=== PATIENT | male | born 1965 | race Caucasian/White ===

== ENCOUNTER 2024-03-21 14:04 | Emergency (ER) | payer OTHER ==
[2024-03-21] MEDS ORDERED: MEFOXIN 2 GM PREMIX** 2 GM/50 ML ML IV ONE (14:05)
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
[2024-03-21] MEDS ORDERED: KEFZOL 1 GM/50 ML PREMIX** 50 ML IV ONE (14:24)
[2024-03-21 14:31] VITALS: TEMP 98.5
[2024-03-21 14:37] LABS: Absolute Neutrophil Ct (ANC) 3.69 x10^3/uL (1.78-5.38); BASOPHIL % 0.6 % (0.2-1.2); Basophil (Absolute #) 0.03 x10^3/uL (0.01-0.08); Eosinophil % 1.3 % (0.8-7.0); Eosinophil (Absolute #) 0.07 x10^3/uL (0.04-0.54); Hematocrit 42.6 % (40.1-51.0); Hemoglobin 15.1 g/dL (13.7-17.5); IMMATURE GRAN # 0.01 x10^3u/L (0.001-0.031); IMMATURE GRAN % 0.2 % (0.001-0.429); Lymphocyte (Absolute #) 1.04 x10^3/uL (1.32-3.57); Lymphocytes % 19.3 % (21.8-53.1); Mean Cell Volume 87.1 fL (79.0-92.2); Mean Corpuscular Hemoglobin 30.9 pg (25.7-32.2); Mean Corpuscular Hgb Concent. 35.4 g/dL (32.3-36.5); Mean Platelet Volume 8.7 fL (9.4-12.4); Monocyte (Absolute #) 0.56 x10^3/uL (0.30-0.82); Monocytes % 10.4 % (5.3-12.2); Neutrophil % 68.2 % (34.0-67.9); Platelet Count 297 x10^3/uL (163-337); Red Blood Count 4.89 x10^6/uL (4.63-6.08); Red Cell Distribution Width 12.5 % (11.6-14.4); White Blood Count 5.4 x10^3/uL (4.23-9.07)
[2024-03-21] MEDS ORDERED: Zofran 4 MG/2 ML VIAL ONE ×2 (14:37→16:46)
[2024-03-21] MEDS ORDERED: Hydromorphone 1 mg/ml Injection ONE (14:37)
[2024-03-21] MEDS ORDERED: Sodium Chloride 0.9% 1000 ML 1,000 ML ONE (14:37)
[2024-03-21] MEDS ORDERED: Adacel Vial IM ONE (14:38)
[2024-03-21] MEDS: Sodium Chloride 0.9% 1000 ML 1,000 ML IV SCH (14:39)
[2024-03-21] MEDS: Zofran 4 MG/2 ML VIAL IV ONE (14:39)
[2024-03-21] MEDS: Hydromorphone 1 mg/ml Injection IV ONE (14:39)
[2024-03-21] MEDS: Adacel Vial IM ONE (14:40)
[2024-03-21] MEDS ORDERED: KEFZOL 1 GM/50 ML PREMIX** 1 GM/50 ML IVPB IV ONE (14:52)
[2024-03-21] MEDS: KEFZOL 1 GM/50 ML PREMIX** 1 GM/50 ML IVPB IV STA (14:54)
[2024-03-21 14:56] LABS: ALBUMIN 4.5 g/dL (3.5-5.0); ANION GAP 14.7 MEQ/L (5-15); BILIRUBIN,TOTAL 0.9 mg/dL (0.2-1.3); Calcium 9.3 mg/dL (8.4-10.2); Creatinine 1 0.86 mg/dL (0.66-1.25); Potassium 3.6 mmol/L (3.5-5.1); Total Protein 7.8 g/dL (6.3-8.2)
[2024-03-21 15:07] LABS: INR 0.98 (0.8-3.0); PROTIME 10.7 SECONDS (9.4-12.5)
[2024-03-21] MEDS ORDERED: KEFLEX 500 MG ONE (15:11)
[2024-03-21] MEDS: KEFLEX 500 MG PO ONE (15:12)
[2024-03-21] MEDS ORDERED: Pepcid 20 MG VIAL IV ONE (15:28)
[2024-03-21] MEDS ORDERED: Reglan 10 MG/2 ML ONE (15:28)
[2024-03-21] MEDS: Reglan 10 MG/2 ML IV ONE (15:28)
[2024-03-21] MEDS: Pepcid 20 MG VIAL IV ONE (15:29)
[2024-03-21] MEDS ORDERED: Eye-Stream Solution ONE (15:35)
[2024-03-21] MEDS: Eye-Stream Solution OP ONE (15:52)
[2024-03-21 16:37] VITALS: PULSE 81; RESP 14; O2SAT 99
[2024-03-21] MEDS ORDERED: Sensorcaine 0.25% 10 ML ONE (16:38)
[2024-03-21] MEDS ORDERED: DIPRIVAN 200 MG/20 ML IV ONE (16:44)
[2024-03-21] MEDS ORDERED: ROCURONIUM BROMIDE IV ONE (16:46)
[2024-03-21] MEDS ORDERED: Versed 2 MG/2 ML Injection ONE (16:47)
[2024-03-21] MEDS ORDERED: SUBLIMAZE 100 MCG/2 ML ONE (16:48)
[2024-03-21] MEDS ORDERED: BRIDION 200MG/2ML IV ONE (16:51)
[2024-03-21] MEDS ORDERED: Quelicin Fliptop 200 MG/10 ML ONE (16:56)
[2024-03-21 17:08] VITALS: BP 145/72
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
--- NOTE | 2024-03-22 10:37 | OP ---
SURGERY DATE/TIME: 03/21/2024 1713 - 1810 PREOPERATIVE DIAGNOSIS: Two major lacerations. POSTOPERATIVE DIAGNOSIS: Two major lacerations. PROCEDURES: 1) Debridement, irrigation and repair of 9 cm laceration left hip involving significant muscle. 2) Debridement, irrigation and repair of 4 cm right upper thigh incision with closure. SURGEON: Sidney Hurd MD ANESTHESIA: General. BLOOD LOSS: None. DRAINS: None. COMPLICATIONS: None. CONDITION: Stable. DESCRIPTION OF PROCEDURE AND FINDINGS: The patient was taken to surgery in the prone position, prepped and draped. There was a laceration that was not through the skin. This was prepped into the field and it was irrigated with a tile power shear operator but was of no significance. Attention was turned to a small 4 cm on the right upper thigh. It was debrided lightly. There was some thrombus here and there. It was taken off. It was seriously irrigated. It was closed with vertical mattress sutures of 3-0 Prolene. Turning to the left lateral hip 9 cm involving substantial amount of muscle, about an inch thick. This was all irrigated, debrided. At this time, the muscle was closed with a running layer of 0 Vicryl, subcutaneous tissue with running layer of 3-0 Vicryl. Skin closed with subcuticular suture of 3-0 Vicryl. A sterile dressing applied. The patient tolerated the procedure satisfactorily. Findings discussed with in waiting room. He was given pain prescription for [place] and a prescription for Augmentin.
== END 2024-03-21 17:00 ==
LOC: ED 14:04
DX: S71.012A Laceration without foreign body, left hip, initial encounter (principal); S71.111A Laceration without foreign body, right thigh, initial encounter; W20.8XXA Other cause of strike by thrown, projected or falling object, initial encounter; Z79.899 Other long term (current) drug therapy; Z23 Encounter for immunization
CPT/HCPCS: 36000; 36415; 80053; 85025; 85610; 90471; 90715; 96374; 96375; 99284; J0330; J0690; J0694; J1170; J2250; J2405; J2704; J3010; A9270-GY